=== PATIENT | male | born 1950 | race Hispanic/Latino ===

== ENCOUNTER 2017-07-10 07:43 | Day surgery (SDC) | payer OTHER ==
[2017-07-10] MEDS ORDERED: Ringers Lactate 1,000 ML IV ONE (08:14)
[2017-07-10] MEDS ORDERED: PROPOFOL 200 MG/20 ML VIAL IV ONE (08:59)
[2017-07-10] MEDS ORDERED: LIDOCAINE 1% MPF 5 ML VIAL ONE (08:59)
[2017-07-10] MEDS ORDERED: GLYCOPYRROLATE 0.2 MG/ML SYR ONE (08:59)
--- NOTE | 2017-07-10 09:28 | ENDO RPT ---
[address], [address] COLONOSCOPY PROCEDURE REPORT EXAM DATE: 07/10/2017 PATIENT NAME: Maksim Spivey MR #: [id number] BIRTHDATE: 1950 ATTENDING: Addy Carey DR STATUS: outpatient NUCLEAR PHYSICIAN: Mojgan Santiago RN and Dimitry Garland INDICATIONS: The patient is a 67 yr old Male here for a colonoscopy due to colon cancer screening PROCEDURE PERFORMED: Colonoscopy with biopsy - cold polypectomy MEDICATIONS: Per Anesthesia. ESTIMATED BLOOD LOSS: None CONSENT: The patient understands the risks and benefits of the procedure and understands that these risks include, but are not limited to: sedation, allergic reaction, infection, perforation and/or bleeding. Alternative means of evaluation and treatment include, among others: physical exam, x-rays, and/or surgical intervention. The patient elects to proceed with this endoscopic procedure. DESCRIPTION OF PROCEDURE: During intra-op preparation period all mechanical medical equipment was checked for proper function. Hand hygiene and appropriate measures for infection prevention was taken. Procedure, possible complications, alternatives including, but not limited to possibility of bleeding, perforation, tear, infection, sepsis, need for surgery, need for blood transfusion, were explained to the patient. After the risks, benefits and alternatives of the procedure were thoroughly explained, Informed consent was verified, confirmed and timeout was successfully executed by the treatment team. The patient was placed in the left lateral position. A digital rectal exam was performed and revealed internal hemorrhoids. After appropriate level of anesthesia, the scope was passed. The EC-[id number] ([id number]) endoscope was introduced through the anus and advanced to the cecum, which was identified by both the appendix and ileocecal valve. The quality of the prep was fair. The instrument was then slowly withdrawn as the colon was fully examined. Scope withdrawal time was 9 minutes. COLON FINDINGS: Moderate diverticulosis was noted in the sigmoid colon. No bleeding was noted from the diverticulosis. Two small medium sized smooth and polypoid shaped semi-pedunculated polyps with friable surfaces were found in the sigmoid colon. A polypectomy was performed using snare cautery and with cold forceps. The resection was complete, the polyp tissue was completely retrieved and sent to histology. Small internal hemorrhoids were found. Retroflexed views revealed no abnormalities. The scope was then completely withdrawn from the patient and the procedure terminated. ADVERSE EVENTS: There were no complications. IMPRESSIONS: 1. Moderate diverticulosis was noted in the sigmoid colon 2. Two small medium sized semi-pedunculated polyps were found in the sigmoid colon; polypectomy was performed using snare cautery and with cold forceps 3. Small internal hemorrhoids RECOMMENDATIONS: 1. avoid NSAIDS for 2 weeks 2. await biopsy results 3. follow-up: office 2 week(s) 4. hemorrhoidal hygiene 5. low fiber / diverticular diet RECALL: Return in 3 year(s) for Colonoscopy, pending biopsy results. Addy Carey DR eSigned: Addy Carey DR 07/10/2017 9:28 AM cc: CPT CODES: ICD9 CODES: PATIENT NAME: Maksim Spivey MR#: [id number]
== END 2017-07-10 10:04 | disposition home or self-care (01) ==
LOC: ENDO 07:43
PROVIDERS: ATTEND Surgery
PROC: 0DBN8ZX Excision of Sigmoid Colon, Via Natural or Artificial Opening Endoscopic, Diagnostic (ICD-10-PCS; 2017-07-10)
PROC: 0DBN8ZX Excision of Sigmoid Colon, Via Natural or Artificial Opening Endoscopic, Diagnostic (ICD-10-PCS; principal; 2017-07-10 09:00)
DX: Z12.11 Encounter for screening for malignant neoplasm of colon (principal); D12.5 Benign neoplasm of sigmoid colon; K57.30 Diverticulosis of large intestine without perforation or abscess without bleeding; K64.8 Other hemorrhoids; F17.200 Nicotine dependence, unspecified, uncomplicated; Z88.0 Allergy status to penicillin; Z83.3 Family history of diabetes mellitus; Z82.49 Family history of ischemic heart disease and other diseases of the circulatory system
CPT/HCPCS: 88305

== ENCOUNTER 2023-01-25 10:15 | Emergency (ER) | payer OTHER ==
--- NOTE | 2023-01-25 10:41 | ER ---
Nurse's Notes [facility] Name: Maksim Spivey Age: 72 yrs Sex: Male : 1950 Arrival Date: 01/25/2023 Time: 10:15 Bed IW10 Private MD: Diagnosis: pain pump removal Presentation: 01/25 10:28 Chief complaint: Chief complaint: Had left shoulder surgery by Dr. Orlando at [facility] on hb Saturday, was told to come to ED to have pain pump discontinued. 10:29 Coronavirus screen: At this time, the client does not indicate any symptoms associated hb with coronavirus-19. Ebola Screen: No symptoms or risks identified at this time. Initial Sepsis Screen: Does the patient meet any 2 criteria? No. Patient's initial sepsis screen is negative. Does the patient have a suspected source of infection? No. Patient's initial sepsis screen is negative. Risk Assessment: Do you want to hurt yourself or someone else? Patient reports no desire to harm self or others. Onset of symptoms was January 25, 2023. 10:29 Method Of Arrival: Ambulatory hb 10:29 Acuity: MARJAN 4 hb Triage Assessment: 10:32 General: Appears in no apparent distress. Behavior is calm, cooperative. Pain: Pain hb currently is 0 out of 10 on a pain scale. Neuro: Level of Consciousness is awake, alert, obeys commands, Oriented to person, place, time, situation. Cardiovascular: Patient's skin is warm and dry. Respiratory: Respiratory effort is even, unlabored, Respiratory pattern is regular, symmetrical. Historical: - Allergies: 10:31 PENICILLINS; hb - PSHx: 10:31 Shoulder - Left; hb - Immunization history:: Adult Immunizations up to date. - Social history:: Smoking status: Patient denies any tobacco usage or history of. - Family history:: not pertinent. - Hospitalizations: : Patient was recently seen at. Screenin:33 [facility] ED Fall Risk Assessment (Adult) Score/Fall Risk Level 0 - 2 = Low Risk hb Oriented to surroundings, Maintained a safe environment. Abuse screen: Denies threats or abuse. Denies injuries from another. Nutritional screening: No deficits noted. Tuberculosis screening: No symptoms or risk factors identified. Assessment: 10:33 General: See triage assessment.. hb Vital Signs: 10:29 BP 156 / 75; Pulse 86; Resp 18; Temp 97.3; Weight 56.7 kg; Height 5 ft. 6 in. ; Pain hb 0/10; 10:29 Body Mass Index 20.18 (56.70 kg, 167.64 cm) hb 10:29 Pain Scale: Adult hb ED Course: 10:23 Patient arrived in ED. rg4 10:30 Triage completed. hb 10:31 Sophie Tyson MD is Attending Physician. cp3 10:32 Arm band placed on. hb 10:33 Patient has correct armband on for positive identification. Provided Education on: . hb 10:33 No provider procedures requiring assistance completed. Patient did not have IV access hb during this emergency room visit. 10:39 Fercho Pandya DO is Referral Physician. cp3 Administered Medications: No medications were administered Medication: 10:33 VIS not applicable for this client. hb Outcome: 10:41 Discharge ordered by . cp3 10:51 Discharged to home ambulatory, hb 10:51 Condition: stable 10:51 Discharge instructions given to patient, Instructed on discharge instructions, follow up and referral plans. Demonstrated understanding of instructions, follow-up care, 10:52 Patient left the ED. hb Signatures: Sophie Tyson MD MD cp3 Fatmata Ramesh RN RN Danielle Mueller rg4 Corrections: (The following items were deleted from the chart) 10:31 10:29 Chief complaint: hb hb
--- NOTE | 2023-01-25 10:41 | EDPHYS ---
Physician Documentation [facility] Name: Maksim Spivey Age: 72 yrs Sex: Male : 1950 Arrival Date: 01/25/2023 Time: 10:15 Bed IW10 Private MD: ED Physician Sophie Tyson HPI: 01/25 10:36 This 72 yrs old Male presents to ER via Ambulatory with complaints of Post cp3 Surgical Problem. 10:36 Patient is a 72-year-old male who presents to the ED secondary to needing left shoulder cp3 pain pump removed. Patient had surgery last week and was advised that he can pull his pain pump but did not know how. Patient denies fever, chills, nausea, vomiting, shortness of breath, redness, drainage from site. Historical: - Allergies: 10:31 PENICILLINS; hb - PSHx: 10:31 Shoulder - Left; hb - Immunization history:: Adult Immunizations up to date. - Social history:: Smoking status: Patient denies any tobacco usage or history of. - Family history:: not pertinent. - Hospitalizations: : Patient was recently seen at. ROS: 10:36 Constitutional: Negative for fever, chills, and weight loss, Eyes: Negative for injury, cp3 pain, redness, and discharge, Neck: Negative for injury, pain, and swelling, Back: Negative for injury and pain, : Negative for injury, bleeding, discharge, and swelling, MS/Extremity: Negative for injury and deformity, Skin: Negative for injury, rash, and discoloration, Hematologic/Lymphatic: Negative for swollen nodes, abnormal bleeding, and unusual bruising, Exam: 10:36 Constitutional: This is a well developed, well nourished patient who is awake, alert, cp3 and in no acute distress. Head/Face: Normocephalic, atraumatic. Eyes: Pupils equal round and reactive to light, extra-ocular motions intact. Lids and lashes normal. Conjunctiva and sclera are non-icteric and not injected. Cornea within normal limits. Periorbital areas with no swelling, redness, or edema. ENT: Nares patent. No nasal discharge, no septal abnormalities noted. Tympanic membranes are normal and external auditory canals are clear. Oropharynx with no redness, swelling, or masses, exudates, or evidence of obstruction, uvula midline. Mucous membranes moist. Neck: Trachea midline, no thyromegaly or masses palpated, and no cervical lymphadenopathy. Supple, full range of motion without nuchal rigidity, or vertebral point tenderness. No Meningismus. Chest/axilla: Normal chest wall appearance and motion. Nontender with no deformity. No lesions are appreciated. Cardiovascular: Regular rate and rhythm with a normal S1 and S2. No gallops, murmurs, or rubs. Normal PMI, no JVD. No pulse deficits. Respiratory: Lungs have equal breath sounds bilaterally, clear to auscultation and percussion. No rales, rhonchi or wheezes noted. No increased work of breathing, no retractions or nasal flaring. Back: No spinal tenderness. No costovertebral tenderness. Full range of motion. Skin: Warm, dry with normal turgor. Normal color with no rashes, no lesions, and no evidence of cellulitis. Pain pump noted over the left shoulder region. Site clean dry and intact Vital Signs: 10:29 BP 156 / 75; Pulse 86; Resp 18; Temp 97.3; Weight 56.7 kg; Height 5 ft. 6 in. ; Pain hb 0/10; 10:29 Body Mass Index 20.18 (56.70 kg, 167.64 cm) hb 10:29 Pain Scale: Adult hb MDM: 10:31 Patient medically screened. cp3 10:36 Differential Diagnosis Left pain pump removal, dislodged from, obstructed pump, skin cp3 infection less likely no visualization. Data reviewed: vital signs, nurses notes. Consideration of Admission/Observation Escalation of care including admission/observation considered. ED course: Pain pump in good condition to left shoulder. Removed without event. Administered Medications: No medications were administered Disposition Summary: 01/25/23 10:41 Discharge Ordered Notes: Location: Home cp3 Problem: new cp3 Symptoms: are unchanged cp3 Condition: Stable cp3 Diagnosis - pain pump removal cp3 Followup: cp3 - With: Fercho Pandya DO - When: - Reason: If symptoms return Forms: - Medication Reconciliation Form cp3 - Thank You Letter cp3 - Antibiotic Education cp3 - Prescription Opioid Use cp3 - Patient Portal Instructions cp3 - Leadership Thank You Letter cp3 Signatures: Sophie Tyson MD MD cp3 Fatmata Ramesh, RN RN hb
[2023-01-25 10:58] VITALS: BP 156/75; TEMP 97.3
== END 2023-01-25 10:52 | disposition home or self-care (01) ==
LOC: ER 10:15
DX: Z45.1 Encounter for adjustment and management of infusion pump (principal)
CPT/HCPCS: 99282